=== PATIENT | male | born 1935 | race Caucasian/White ===

== ENCOUNTER 2022-01-13 17:04 | Emergency (ER) | payer MEDICARE, OTHER ==
[~2022-01-13] VITALS: Ht 160 cm; Wt 67.1 kg
[2022-01-13] MEDS ORDERED: IV NORMAL SALINE 500 ML BAG IV ONE (17:15)
[2022-01-13] MEDS ORDERED: ONDANSETRON 4 MG/2 ML VIAL IV ONE (17:15)
[2022-01-13] MEDS ORDERED: ACETAMINOPHEN ES 500 MG TABLET PO ONE (17:15)
[2022-01-13] MEDS ORDERED: ONDANSETRON 4 MG/2 ML VIAL ONE (17:32)
[2022-01-13] MEDS ORDERED: ACETAMINOPHEN ES 500 MG TABLET ONE (17:33)
[2022-01-13] MEDS ORDERED: KETOROLAC TROMETHAMINE 15 MG INJ IVP ONE (18:15)
[2022-01-13] MEDS ORDERED: CEFTRIAXONE 1 G in IV DEXTROSE 5% 50 ML IV ONE (18:15)
[2022-01-13 18:18] LABS: HEMATOCRIT 43.3 % (36.7-47.1); MEAN CORPUSCULAR HEMOGLOBIN 32.1 uug (23.8-33.4); MEAN CORPUSCULAR VOLUME 95.5 fL (73.0-96.2); PLATELET COUNT (AUTO) 315 K/uL (152-348)
[2022-01-13] MEDS ORDERED: CEFTRIAXONE /D5W 50ML IVPB **ER PYXIS IV ONE (18:22)
[2022-01-13] MEDS ORDERED: KETOROLAC TROMETHAMINE 15 MG INJ ONE (18:22)
[2022-01-13 18:39] LABS: CREATININE 0.9 mg/dL (0.6-1.3); POTASSIUM 3.7 mmol/L (3.5-5.1)
[2022-01-13 18:46] LABS: BILIRUBIN,DIRECT 0.2 mg/dL (0.0-0.2); BILIRUBIN,TOTAL 0.9 mg/dL (0.2-1.0); TOTAL PROTEIN, SERUM 7.8 g/dL (6.4-8.2)
[2022-01-13] MEDS ORDERED: IBUP-1955 PO (19:14)
[2022-01-13] MEDS ORDERED: CEPH500T PO (19:14)
--- NOTE | 2022-01-13 19:45 | NUR ---
IV removed. Catheter intact and site benign. Pressure and 4x4 gauze applied to site. No bleeding noted.
--- NOTE | 2022-01-13 19:46 | NUR ---
Patient discharged to home in stable condition with family taking patient home. Written and verbal after care instructions given. Patient verbalizes understanding of instructions. Stressed follow up or return to ER for worsening s/s.
[2022-01-13 19:54] LABS: *BILIRUBIN,URIN NEGATIVE (NEGATIVE); *BLOOD, URINE NEGATIVE (NEGATIVE); *CLARITY,URINE CLEAR (CLEAR); *COLOR,URINE YELLOW (YELLOW); *KETONES,URINE NEGATIVE (NEGATIVE); LEUKOCYTE ESTERASE ,URINE NEGATIVE (NEGATIVE); NITRITE, URINE NEGATIVE (NEGATIVE); UGLUCOSE NEGATIVE (NEGATIVE)
[2022-01-13 20:42] VITALS: BP 140/88
== END 2022-01-13 19:46 | disposition home or self-care (01) ==
LOC: ER 17:04
DX: R10.9 Unspecified abdominal pain (principal); N30.90 Cystitis, unspecified without hematuria; K38.1 Appendicular concretions; Z85.51 Personal history of malignant neoplasm of bladder; N40.0 Benign prostatic hyperplasia without lower urinary tract symptoms; E78.5 Hyperlipidemia, unspecified; I10 Essential (primary) hypertension
CPT/HCPCS: 99284; 74176; 96365; 96375; 96361; 80076; 80048; 81003; 83690; 85025; 36415; J0696; J1885; J2405; J7040; A4663; A9150